=== PATIENT | female | born 1930 | race Caucasian/White ===

== ENCOUNTER 2017-02-13 08:34 | Day surgery (SDC) | payer MEDICARE, BC ==
--- NOTE | ~2017-02-13 | OP ---
Record Of Operation [facility] [address] [place]. [address] NAME: ZOE TORRES : 32 [place] [facility] [place] [id number] AGE: 86 ADM/REG DATE : 02/13/17 MR#: [id number] REPORT SERV DATE: 02/13/17 DICTATED BY: MANJEET RODNEY DATE: 02/13/17 REPORT STATUS : Draft TRANSCRIBED BY: MODL DATE: 02/13/17 DATE OF PROCEDURE: 02/13/2017 SURGEON: Manjeet Rodney MD JUNG OF OPERATION: Cystourethroscopy, right retrograde pyelogram, right ureteroscopy with ureteral biopsy and placement of 6 x 26 right ureteral stent. PREOPERATIVE DIAGNOSIS: Right hydronephrosis. POSTOPERATIVE DIAGNOSES: 1. Right hydronephrosis. 2. Ureteral stone. 3. Ureteral lesion. INDICATIONS: Ms. Torres is an 86-year-old female with lung cancer. PET scan demonstrated significant hydronephrosis. She is asymptomatic. Creatinine was 0.78. She is here for evaluation. ANESTHESIA: General. COMPLICATIONS: None. IMPLANT: 6 x 26 right ureteral stent with no tether. SPECIMEN: 1. Right ureteral biopsy. 2. Right ureteral washing for cytopathology. NARRATIVE: The patient was brought to the operating room, identified by wristband. General anesthesia was induced and Levaquin was given for preoperative antibiotics. She was then prepped and draped in sterile fashion. A cystoscope was placed into her urethra and into her bladder. Bladder was inspected, it was normal. There were no lesions or abnormalities. The right ureteral orifice was identified and was cannulated with a Sensor wire. Retrograde pyelogram was shot. No contrast passed beyond the distal ureter. A 5-Norwegian open-ended catheter was advanced up to the level of blockage and a Sensor wire was able to be manipulated past the area of blockage. The 5-Norwegian open-ended catheter was placed over the wire, into the proximal ureter. Retrograde pyelogram was shot, which demonstrated significant hydroureter and hydronephrosis with ureteral tortuosity. The wire was advanced up into the upper pole under fluoroscopic guidance. Next, a rigid ureteroscope was placed alongside the wire. The ureter was inspected. There were inflammatory changes in the ureter. This looked more of edema and less likey a tumor. There was some calcifications concerning for stone, however visualization was relatively poor given the longstanding obstruction and was able to biopsy this area several times with a final biopsy forcep, and was sent to pathology for analysis. A ureteral wash was sent for cytopathology. There was no bleeding. Next, a 6 x 26 ureteral stent was placed over the wire, into the upper pole. Record Of Operation [address] [place]. [address] NAME: ZOE TORRES : 32 [place] [facility] [place] [id number] AGE: 86 ADM/REG DATE : 02/13/17 MR#: [id number] REPORT SERV DATE: 02/13/17 DICTATED BY: MANJEET RODNEY DATE: 02/13/17 REPORT STATUS : Draft TRANSCRIBED BY: BASSEM DATE: 02/13/17 Distal coil was coiled in the bladder, this was confirmed with x-ray. The bladder was drained. The patient was awoken from anesthesia and transferred to the recovery room in stable condition. I will call her with the pathology report and she will follow up with me in a week to discuss further options. MAHIN/BASSEM Manjeet Rodney MD / [id number] CC: Manjeet Rodney MD
[~2017-02-13 08:34] MED LIST: ASAB PO; AZOPT OPH; C5 PO; COLON CARE; COSAMIN DS1 TAB PO; COZ50 PO; ENTOCORT3 PO; JANTOVEN6 MG PO; L20 PO; LEVAQUIN750 MG PO; LOP100 PO; LOP50 PO; OCUVITE PO; P10 PO; PRADAXA150 MG PO; PROAIR HFA INH; PROTEGRA PO; RESTASIS; RESTASIS OPH; TARKA1 TA1 OR; TRIAM/HCTZ; VITAMIN D31000 UNIT PO; VSL PROBIOTIC PO; XARELTO20 MG PO; XYZAL5 MG PO; ZANTAC150 MG PO; ZOCOR40 PO; [UNRECOGNIZED DRUG - REMARK]
[2017-02-13 09:13] LABS: HEMATOCRIT 40.6 % (36.0-48.0); HEMOGLOBIN 13.3 g/dL (12.0-16.0)
[2017-02-13 09:15] LABS: ASCORBIC ACID (UR NOT ORDER) NEG (NEG); BILIRUBIN, URINE NEGATIVE (NEG); KETONE, URINE NEGATIVE (NEG); LEUKOCYTE ESTERASE(NOT OR LARGE (NEG)
[2017-02-13 09:25] LABS: BUN (BLOOD UREA NITROGEN) 18 MG/DL (6-23); CALCIUM, SERUM 9.8 MG/DL (8.5-10.4); CHLORIDE, SERUM 111 MMOL/L (96-112); CO2 (CARBON DIOXIDE) 28 MMOL/L (24-34); CREATININE 0.78 MG/DL (0.55-1.02); GFR AFRICAN AMERICAN 80 ML/MIN (>=60); GFR NON AFRICAN AMERICAN 69 ML/MIN (>=60); GLUCOSE, SERUM 99 MG/DL (60-99); POTASSIUM, SERUM 3.7 MMOL/L (3.5-5.3); SODIUM, SERUM 144 MMOL/L (135-148)
[2017-03-08] MEDS ORDERED: LIPITOR20 PO (10:46)
[2017-03-08] MEDS ORDERED: SINGULAIR1 PO (10:46)
[2017-04-04] MEDS ORDERED: ZYRTEC ALLGY10 MG PO (08:17)
== END 2017-02-13 16:18 | disposition home or self-care (01) ==
LOC: SDC 08:34
PROVIDERS: Urology
PROC: 0TB68ZX Excision of Right Ureter, Via Natural or Artificial Opening Endoscopic, Diagnostic (ICD-10-PCS; principal; 2017-02-13 10:15)
PROC: 0T768DZ Dilation of Right Ureter with Intraluminal Device, Via Natural or Artificial Opening Endoscopic (ICD-10-PCS; 2017-02-13 10:15)
DX: N20.1 Calculus of ureter (principal); N13.30 Unspecified hydronephrosis; F17.200 Nicotine dependence, unspecified, uncomplicated; I48.91 Unspecified atrial fibrillation; M19.90 Unspecified osteoarthritis, unspecified site; C34.90 Malignant neoplasm of unspecified part of unspecified bronchus or lung; I10 Essential (primary) hypertension; Z88.0 Allergy status to penicillin; Z88.5 Allergy status to narcotic agent; Z90.49 Acquired absence of other specified parts of digestive tract
CPT/HCPCS: 74420; 80048; 81001; 85014; 85018; 87077; 87086; 87186; 88112; 88305; 93005; C1758; C2617; J2175; Q9967